=== PATIENT | male | born 1970 | race Caucasian/White ===

== ENCOUNTER 2017-06-20 16:47 | Emergency (ER) | payer SELFPAY ==
[~2017-06-20] VITALS: Ht 167.6 cm; Wt 65.8 kg
[~2017-06-20 16:47] MED LIST: CEPH500C PO; CYCL10TA9 PO; HYDR1TAB PO; OXYC1TAB87
--- NOTE | 2017-06-20 17:09 | ED General ---
General Chief Complaint: Cough/Cold/Flu Symptoms Stated Complaint: FEVER,BODYACHES,VOMITING Nursing Triage Note: PT COMPLAINS OF A FEVER AND VOMTING STARTING LAST NIGHT. 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 Nursing Sepsis Screen: No Definite Risk Source of Information: Patient Exam Limitations: No Limitations History of Present Illness Date Seen by Provider: Jun 20, 2017 Time Seen by Provider: 17:05 Initial Comments To ER with a fever up to 104 according to , vomiting, body aches, headache. These symptoms all began abruptly last night Timing/Duration: 1-2 Days Severity: Moderate Associated Systoms: No Cough, Headaches, Malaise Allergies and Home Medications Allergies Coded Allergies: No Known Drug Allergies (Verified Allergy, Unknown, 12/24/07) Home Medications Amoxicillin/Potassium Clav 1 Each Tablet, 1 EACH PO BID Prescribed by: ANDRE LAZCANO on 06/20/171835 Ondansetron 8 Mg Tab.rapdis, 8 MG PO Q6H PRN for NAUSEA/VOMITING-1ST LINE Prescribed by: ANDRE LAZCANO on 06/20/171835 Constitutional: see HPI, chills, fever, malaise, weakness EENTM: No nose congestion, No nose pain Respiratory: see HPI, No cough Cardiovascular: No see HPI Gastrointestinal: No abdominal pain, No constipation, No diarrhea, nausea, vomiting Genitourinary: no symptoms reported Musculoskeletal: no symptoms reported Skin: no symptoms reported Psychiatric/Neurological: See HPI Past Swjuzip-Hinlvn-Rhvwsw Hx Patient Social History Recent Foreign Travel: No Contact w/Someone Who Travel: No Recent Infectious Disease Expo: No Immunizations Up To Date Tetanus Booster (TDap): More than 5yrs Reproductive System Hx Reproductive Disorders: No Blood Transfusions Adverse Reaction to a Blood Tr: No Family Medical History Significant Family History: No Pertinent Family Hx Physical Exam Vital Signs Vital Signs - First Documented 06/20/17 16:54 Temp 98.7 Pulse 107 Resp 18 B/P (MAP) 147/84 (105) Pulse Ox 96 O2 Delivery Room Air Capillary Refill : Less Than 3 Seconds General Appearance: No Apparent Distress, WD/WN, Other (appears much older than stated age) Eyes: Bilateral Eye Normal Inspection, Bilateral Eye PERRL, Bilateral Eye EOMI HEENT: PERRL/EOMI, TMs Normal Neck: Full Range of Motion, Normal Inspection Respiratory: No Accessory Muscle Use, No Respiratory Distress Cardiovascular: Regular Rate, Rhythm, Normal Peripheral Pulses Gastrointestinal: Normal Bowel Sounds, Non Tender, Soft Extremity: Normal Capillary Refill, Normal Inspection Neurologic/Psychiatric: Alert, Oriented x3, No Motor/Sensory Deficits, Normal Mood/Affect Skin: Normal Color, Warm/Dry Focused Exam Evaluation Lactate Level Laboratory Tests 06/20/17 18:55: Lactic Acid Level Laboratory Tests Test 06/20/17 18:55 Progress/Results/Core Measures Suspected Sepsis Recent Fever Within 48 Hours: No Infection Criteria Present: None New/Unexplained Altered Menta: No Sepsis Screen: No Definite Risk Sepsis Diagnosis: SIRS Temperature:98.7 Pulse: 107 Respiratory Rate: 18 Laboratory Tests 06/20/17 17:15: White Blood Count 17.0H Blood Pressure 147 /84 Mean: 105 Laboratory Tests 06/20/17 18:55: Laboratory Tests 06/20/17 17:15: Creatinine 0.94, Platelet Count 193, Total Bilirubin 1.2H Results/Orders Lab Results Laboratory Tests Test 06/20/17 17:15 06/20/17 18:55 Range/Units White Blood Count 17.0 H 4.3-11.0 10^3/uL Red Blood Count 5.01 4.35-5.85 10^6/uL Hemoglobin 15.8 13.3-17.7 G/DL Hematocrit 44 40-54 % Mean Corpuscular Volume 88 80-99 FL Mean Corpuscular Hemoglobin 32 25-34 PG Mean Corpuscular Hemoglobin Concent 36 32-36 G/DL Red Cell Distribution Width 13.7 10.0-14.5 % Platelet Count 193 130-400 10^3/uL Mean Platelet Volume 10.5 H 7.4-10.4 FL Neutrophils (%) (Auto) 86 H 42-75 % Lymphocytes (%) (Auto) 5 L 12-44 % Monocytes (%) (Auto) 9 0-12 % Eosinophils (%) (Auto) 0 0-10 % Basophils (%) (Auto) 0 0-10 % Neutrophils # (Auto) 14.6 H 1.8-7.8 X 10^3 Lymphocytes # (Auto) 0.9 L 1.0-4.0 X 10^3 Monocytes # (Auto) 1.5 H 0.0-1.0 X 10^3 Eosinophils # (Auto) 0.0 0.0-0.3 10^3/uL Basophils # (Auto) 0.1 0.0-0.1 10^3/uL Neutrophils % (Manual) 89 % Lymphocytes % (Manual) 8 % Monocytes % (Manual) 3 % Blood Morphology Comment NORMAL Sodium Level 135 135-145 MMOL/L Potassium Level 4.1 3.6-5.0 MMOL/L Chloride Level 102 98-107 MMOL/L Carbon Dioxide Level 20 L 21-32 MMOL/L Anion Gap 13 5-14 MMOL/L Blood Urea Nitrogen 7 7-18 MG/DL Creatinine 0.94 0.60-1.30 MG/DL Estimat Glomerular Filtration Rate > 60 BUN/Creatinine Ratio 7 Glucose Level 181 H 70-105 MG/DL Calcium Level 9.5 8.5-10.1 MG/DL Total Bilirubin 1.2 H 0.1-1.0 MG/DL Aspartate Amino Transf (AST/SGOT) 20 5-34 U/L Alanine Aminotransferase (ALT/SGPT) 19 0-55 U/L Alkaline Phosphatase 92 40-136 U/L Total Protein 7.4 6.4-8.2 GM/DL Albumin 4.1 3.2-4.5 GM/DL Monoscreen NEGATIVE NEGATIVE Micro Results Microbiology 06/20/17 Influenza Types A,B Antigen ([facility]) - Final, Complete My Orders Orders - ANDRE LAZCANO INFORMATION SYSTEMS 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 MANAGER Cbc With Automated Diff (06/20/17 17:03) Comprehensive Metabolic Panel (06/20/17 17:03) Saline Lock/Iv-Start (06/20/17 17:03) Ketorolac Injection (Toradol Injection) (06/20/17 17:15) Lactated Ringers (Lr 1000 Ml Iv Solution (06/20/17 17:15) Influenza A And B Antigens (06/20/17 17:03) Monotest (06/20/17 17:03) Ondansetron Injection (Zofran Injectio (06/20/17 17:15) Chest Pa/Lat (2 View) (06/20/17 17:10) Manual Differential (06/20/17 17:15) Ceftriaxone Injection (Rocephin Injectio (06/20/17 18:15) Ua Culture If Indicated (06/20/17 18:15) Blood Culture (06/20/17 18:41) Lactic Acid Analyzer (06/20/17 18:41) Lactated Ringers (Lr 1000 Ml Iv Solution (06/20/17 19:00) Nicotine Patch (Nicoderm Patch) (06/20/17 19:00) Medications Given in ED Current Medications Medications Dose Ordered Sig/Lou Route Start Time Stop Time Status Last Admin Dose Admin Ketorolac Tromethamine 30 mg ONCE ONCE IVP 06/20/17 17:15 06/20/17 17:16 DC 06/20/17 17:16 30 MG Ondansetron HCl 8 mg ONCE ONCE IVP 06/20/17 17:15 06/20/17 17:16 DC 06/20/17 17:15 8 MG Vital Signs/I&O Vital Sign - Last 12Hours 06/20/17 16:54 Temp 98.7 Pulse 107 Resp 18 B/P (MAP) 147/84 (105) Pulse Ox 96 O2 Delivery Room Air Capillary Refill : Less Than 3 Seconds Blood Pressure Mean: 105 Departure Communication (Admissions) Family Conversation 1904- patient states that he is feeling "100% better" at this time. Very reluctant to provide us with a urine sample though he assures me he was able to be at home before he came and does not want to wait until he is able to urinate here. He needs a cigarette he states and wants to go home now. He does agree to receive Rocephin IV then be discharged. Progress Notes NAME: EMERITA ROY [facility] REC#: [id number] PT STATUS: REG ER : 1970 PHYSICIAN: ANDRE LAZCANO APRN ADMIT DATE: 06/20/17/ER Draft Date of Exam:06/20/17 CHEST PA/LAT (2 VIEW) EXAMINATION: CHEST (PA AND LATERAL) CLINICAL INDICATION: 47-year-old male, fever and vomiting. COMPARISON: 01/19/2015. FINDINGS: Heart size and mediastinal contours are unremarkable. There is no identified pneumothorax. There is no identified pleural effusion. There are streaky opacities in the right lower lobe which are unchanged since 01/19/2015 radiographs. IMPRESSION: Streaky opacities in the right lower lobe which may relate to infiltrate and/or atelectasis. These are new since 01/19/2015. Dictated on workstation # [id number] Dict: 06/20/17 1735 Trans: 06/20/17 1737 [id number] Interpreted by: WALLACE BROWN MD Electronically signed by: Impression Impression: Primary Impression: Right lower lobe pneumonia Disposition: 01 HOME, SELF-CARE Condition: Stable Departure-Patient Inst. Decision time for Depature: 18:35 Referrals: GENARO ALVARADO DO (PCP/Family) Primary Care Physician Patient Instructions: Pneumonia, Adult (DC) Add. Discharge Instructions: U should follow-up with Dr. Dr. Alvarado in the next few weeks to repeat a chest x-ray to make sure that this area in the right lower lung is actually pneumonia and is gone after a course of antibiotics. Return to ER for any worsening symptoms or other concerns. Scripts Ondansetron (Zofran Odt) 8 Mg Tab.rapdis 8 MG PO Q6H Y for NAUSEA/VOMITING-1ST LINE, #10 TAB . Prov: ANDRE LAZCANO APRN 06/20/17 Amoxicillin/Potassium Clav (Augmentin 875-125 Tablet) 1 Each Tablet 1 EACH PO BID, #14 TAB . Prov: ANDRE LAZCANO APRN 06/20/17 Copy Copies To 2: GENARO ALVARADO PETER J APRN Jun 20, 2017 17:09
[2017-06-20] MEDS ORDERED: ONDANSETRON 4 MG/2 ML (SDV) Z0FRAN IVP ONE (17:15)
[2017-06-20] MEDS ORDERED: LACTATED RINGERS 1,000 ML IV SCH ×2 (17:15→19:00)
[2017-06-20] MEDS ORDERED: KETOROLAC 30 MG/ML VIAL IVP ONE (17:15)
[2017-06-20 17:25] LABS: BASOPHILS # (AUTO) 0.1 10^3/uL (0.0-0.1); BASOPHILS % (AUTO) 0 % (0-10); EOSINOPHILS % (AUTO) 0 % (0-10); HEMATOCRIT 44 % (40-54); HEMOGLOBIN 15.8 G/DL (13.3-17.7); LYMPHOCYTES # (AUTO) 0.9 X 10^3 (1.0-4.0); LYMPHOCYTES % (AUTO) 5 % (12-44); MEAN CORPUSCULAR HEMOGLOBIN 32 PG (25-34); MEAN CORPUSCULAR HGB CONC 36 G/DL (32-36); MEAN CORPUSCULAR VOLUME 88 FL (80-99); MEAN PLATELET VOLUME 10.5 FL (7.4-10.4); MONOCYTES # (AUTO) 1.5 X 10^3 (0.0-1.0); MONOCYTES % (AUTO) 9 % (0-12); NEUTROPHILS # (AUTO) 14.6 X 10^3 (1.8-7.8); NEUTROPHILS % (AUTO) 86 % (42-75); PLATELET COUNT 193 10^3/uL (130-400); RED BLOOD COUNT 5.01 10^6/uL (4.35-5.85); RED CELL DISTRIBUTION WIDTH 13.7 % (10.0-14.5)
--- NOTE | 2017-06-20 17:38 | Diagnostic Imaging Report ---
EXAMINATION: CHEST (PA AND LATERAL) CLINICAL INDICATION: 47-year-old male, fever and vomiting. COMPARISON: 01/19/2015. FINDINGS: Heart size and mediastinal contours are unremarkable. There is no identified pneumothorax. There is no identified pleural effusion. There are streaky opacities in the right lower lobe which are unchanged since 01/19/2015 radiographs. IMPRESSION: Streaky opacities in the right lower lobe which may relate to infiltrate and/or atelectasis. These are new since 01/19/2015. Dictated by: Dictated on workstation # [id number]
--- OUTSIDE RECORDS SUMMARY | 2017-06-20 17:42 | XMS REPORT | Continuity of Care Document ---
Author Author [facility] Address Unknown Phone Unavailable Allergies Active Description Code Type Severity Reaction Onset Reported/Identified Relationship to Patient Clinical Status Yes No Known Drug Allergies [id number] Drug Allergy Unknown N/A 12/24/2007 Medications There is no data. Problems Date Dx Coded Attending Type Code Diagnosis Diagnosed By 08/19/2009 Ot V58.30 03/17/2013 HYUN LOVE APRN 296.90 MOOD DISORDER NOS 03/17/2013 HYUN LOVE APRN 296.90 MOOD DISORDER NOS Procedures Code [place] [address] PSYCH DIAG EVAL W/MED SRVCS 03/19/2013 Results There is no data. Encounters ACCT No. Visit Date/Time Discharge Status Pt. Type Provider Facility Loc./Unit Complaint [id number] 03/17/2013 08:52:00 03/17/2013 23:59:59 CLS Outpatient HYUN LOVE APRN [id number] 03/17/2013 08:52:00 03/17/2013 23:59:59 CLS Outpatient HYUN LOVE APRN [id number] 01/19/2015 17:35:00 01/19/2015 19:41:00 DIS Emergency MATTHEW DURAN [facility] ER [id number] 01/19/2015 17:34:00 Document Registration [id number] 08/19/2009 14:38:00 Document Registration
[2017-06-20 17:44] LABS: ALANINE AMINOTRANSFERASE 19 U/L (0-55); ALBUMIN 4.1 GM/DL (3.2-4.5); ALKALINE PHOSPHATASE 92 U/L (40-136); BILIRUBIN,TOTAL 1.2 MG/DL (0.1-1.0); BUN/CREATININE RATIO 7; CALCIUM 9.5 MG/DL (8.5-10.1); CARBON DIOXIDE 20 MMOL/L (21-32); CHLORIDE 102 MMOL/L (98-107); CREATININE SERUM 0.94 MG/DL (0.60-1.30); GFR ESTIMATED > 60; GLUCOSE 181 MG/DL (70-105); POTASSIUM 4.1 MMOL/L (3.6-5.0); SODIUM 135 MMOL/L (135-145); TOTAL PROTEIN 7.4 GM/DL (6.4-8.2)
[2017-06-20 18:01] LABS: LYMPHOCYTES % (MANUAL) 8 %; MONOCYTES % (MANUAL) 3 %; NEUTROPHILS % (MANUAL) 89 %; RBC MORPH NORMAL
[2017-06-20] MEDS ORDERED: cefTRIAXone INJECTION 1,000 MG in NS (IVPB) 50 ML IV ONE (18:15)
[2017-06-20] MEDS ORDERED: AMOX-358 PO ×2 (18:36→19:07)
[2017-06-20] MEDS ORDERED: ONDA8TAB9 PO ×2 (18:36→19:07)
[2017-06-20] MEDS ORDERED: NICOTINE 21 MG (NICODERM) PATCH TD ONE (19:00)
[2017-06-20 20:00] VITALS: BP 0/0
== END 2017-06-20 20:00 | disposition home or self-care (01) ==
LOC: EDUNIT# 16:47 → ER 16:49
DX: J18.1 Lobar pneumonia, unspecified organism (principal)
CPT/HCPCS: 36415; 71046; 80053; 83605; 85007; 85027; 86308; 87040; 87804; 96361; 96365; 96375